=== PATIENT | female | born 1965 | race Hispanic/Latino ===

== ENCOUNTER 2019-12-03 16:08 | Emergency (ER) | payer OTHER, SELFPAY ==
[2019-12-04 14:44] LABS: SARS-CoV-2 MS2 Positive; SARS-CoV-2 N Gene Positive; SARS-CoV-2 S Gene Positive; SARS-CoV-2 orf1ab Positive
== END 2019-12-03 16:43 | disposition home or self-care (01) ==
LOC: ERS 16:08
DX: U07.1 COVID-19 (principal)
CPT/HCPCS: 87635; 99283; U0003

== ENCOUNTER 2019-12-16 14:52 | Emergency (ER) | payer OTHER, SELFPAY | END 2019-12-16 16:00 | disposition home or self-care (01) | LOC: ERS 14:52 | DX: Z09 Encounter for follow-up examination after completed treatment for conditions other than malignant neoplasm (principal); Z86.19 Personal history of other infectious and parasitic diseases; R05 Cough; E78.5 Hyperlipidemia, unspecified | CPT/HCPCS: 99283 ==